=== PATIENT | female | born 1975 | race Two or more races ===

== ENCOUNTER 2017-12-06 19:00 | Observation (INO) | payer SELFPAY ==
[~2017-12-06] VITALS: Ht 165.1 cm; Wt 82.7 kg
[2017-12-06 19:48] LABS: BASOPHILS 0.2 % (0-2); EOSINOPHILS 2.4 % (0-7); HEMATOCRIT 37.1 % (36.0-48.0); HEMOGLOBIN 12.9 g/dL (12-16); IMMATURE GRANULOCYTES 0.3 % (0-5); LYMPHOCYTES 31.2 % (15-50); MCH 31.4 pg (26.0-34.0); MCHC 34.8 g/dL (31.0-37.0); MCV 90.3 fL (80.0-100.0); MEAN PLATELET VOLUME 10.5 fL (7.4-10.4); MONOCYTES 7.7 % (2-11); NEUTROPHILS 58.2 % (40-80); PLATELET COUNT 249 10x3/uL (130-400); RBC 4.11 10x6/uL (4.00-5.40); RDW 13.1 % (11.5-14.5); WBC 9.5 10x3/uL (4.8-10.8)
[2017-12-06 19:59] LABS: INR 1.03 (0.85-1.17); PROTIME 13.1 SECONDS (11.6-15.0)
[2017-12-06 20:00] LABS: APTT 28.5 SECONDS (22.8-39.4)
[2017-12-06 20:01] LABS: D-DIMER-QUANTITATIVE < 0.27 ug/mLFEU (0.20-0.54)
[2017-12-06 20:23] VITALS: BP 213/93
[2017-12-06 20:35] LABS: ALBUMIN 3.5 g/dL (3.4-5.0); ALKALINE PHOSPHATASE 49 U/L (46-116); ALT (SGPT) 62 U/L (10-68); CALC OSMOLALITY 274 mosm/kg (275-300); CALCIUM 7.7 mg/dL (8.5-10.1); CHLORIDE - SERUM 103 mmol/L (98-107); CREATININE - SERUM 0.7 mg/dL (0.6-1.3); GLUCOSE 155 mg/dL (74-106); POTASSIUM - SERUM 3.7 mmol/L (3.5-5.1); SODIUM 137 mmol/L (136-145); UREA NITROGEN 8 mg/dL (7-18); eGFR NON AFRICAN AMERICAN > 90 mL/min (90-120)
[2017-12-06 20:44] LABS: AMYLASE - SERUM 42 U/L (25-115); CKMB 0.8 U/L (0.0-3.6); CREATINE KINASE 107 UL (21-215); LIPASE 169 U/L (73-393); MAGNESIUM - SERUM 2.1 mg/dL (1.8-2.4); TROPONIN-I < 0.017 ng/mL (0.000-0.060)
[2017-12-06 21:20] VITALS: BP 203/109
[2017-12-06 23:01] VITALS: BP 195/93
[2017-12-06 23:41] VITALS: BP 166/97
[2017-12-07 00:15] LABS: CKMB 0.8 U/L (0.0-3.6); CREATINE KINASE 87 UL (21-215); TROPONIN-I < 0.017 ng/mL (0.000-0.060)
[2017-12-07 00:42] VITALS: BP 155/82; BMI 30.3
[2017-12-07] MEDS ORDERED: CLARITIN10 MG/TAB PO (00:50)
[2017-12-07] MEDS ORDERED: ZESTRIL10 MG PO (00:51)
[2017-12-07 04:00] VITALS: BP 155/82
[2017-12-07 05:50] LABS: BASOPHILS 0.2 % (0-2); EOSINOPHILS 2.8 % (0-7); HEMATOCRIT 36.4 % (36.0-48.0); HEMOGLOBIN 12.6 g/dL (12-16); IMMATURE GRANULOCYTES 0.3 % (0-5); MCH 31.3 pg (26.0-34.0); MCHC 34.6 g/dL (31.0-37.0); MCV 90.3 fL (80.0-100.0); MEAN PLATELET VOLUME 10.5 fL (7.4-10.4); MONOCYTES 5.9 % (2-11); NEUTROPHILS 64.8 % (40-80); PLATELET COUNT 217 10x3/uL (130-400); RBC 4.03 10x6/uL (4.00-5.40); RDW 13.1 % (11.5-14.5); WBC 9.1 10x3/uL (4.8-10.8)
[2017-12-07 06:33] LABS: CALC OSMOLALITY 273 mosm/kg (275-300); CALCIUM 7.6 mg/dL (8.5-10.1); CARBON DIOXIDE 25.5 mmol/L (21.0-32.0); CHLORIDE - SERUM 106 mmol/L (98-107); CKMB 0.6 U/L (0.0-3.6); CREATINE KINASE 76 UL (21-215); CREATININE - SERUM 0.6 mg/dL (0.6-1.3); GLUCOSE 132 mg/dL (74-106); SODIUM 137 mmol/L (136-145); TROPONIN-I < 0.017 ng/mL (0.000-0.060); UREA NITROGEN 7 mg/dL (7-18); eGFR NON AFRICAN AMERICAN > 90 mL/min (90-120)
[2017-12-07 08:51] VITALS: BP 147/58
[2017-12-07 11:32] VITALS: BP 163/100
[2017-12-07 13:40] LABS: CKMB 0.7 U/L (0.0-3.6); CREATINE KINASE 91 UL (21-215)
[2017-12-07 13:42] LABS: TROPONIN-I < 0.017 ng/mL (0.000-0.060)
[2017-12-07 16:03] VITALS: BP 157/88
[2017-12-07 16:08] VITALS: Ht 165.1 cm; Wt 82.7 kg
[2017-12-07 16:39] LABS: CHOL - HDL RATIO 2.7 ratio (2.3-4.1); LDL-HDL RATIO 1.4 ratio (1.5-3.5)
[2017-12-07 17:50] LABS: APPEARANCE CLEAR (CLEAR); BILIRUBIN NEGATIVE (NEGATIVE); COLOR STRAW (YELLOW); GLUCOSE NEGATIVE (NEGATIVE); KETONE NEGATIVE (NEGATIVE); NITRITE NEGATIVE (NEGATIVE); PROTEIN NEGATIVE (NEGATIVE); SPECIFIC GRAVITY 1.005 (1.005-1.020); UROBILINOGEN NORMAL (NORMAL)
[2017-12-07 17:52] LABS: BACTERIA FEW /hpf (NONE SEEN); RED CELLS - URINE OCC /hpf (0-5); WHITE CELLS - URINE 0-5 /hpf (0-5)
[2017-12-07 20:00] VITALS: BP 165/92
[2017-12-08 04:00] VITALS: BP 120/66
[2017-12-08 07:10] LABS: BASOPHILS 0.3 % (0-2); EOSINOPHILS 2.5 % (0-7); HEMATOCRIT 37.4 % (36.0-48.0); HEMOGLOBIN 12.9 g/dL (12-16); IMMATURE GRANULOCYTES 0.4 % (0-5); LYMPHOCYTES 27.8 % (15-50); MCH 31.3 pg (26.0-34.0); MCHC 34.5 g/dL (31.0-37.0); MCV 90.8 fL (80.0-100.0); MEAN PLATELET VOLUME 10.7 fL (7.4-10.4); MONOCYTES 10.2 % (2-11); NEUTROPHILS 58.8 % (40-80); PLATELET COUNT 222 10x3/uL (130-400); RBC 4.12 10x6/uL (4.00-5.40); RDW 13.2 % (11.5-14.5)
[2017-12-08 07:15] LABS: WBC 6.8 10x3/uL (4.8-10.8)
[2017-12-08 07:29] LABS: CALC OSMOLALITY 274 mosm/kg (275-300); CALCIUM 7.9 mg/dL (8.5-10.1); CARBON DIOXIDE 23.9 mmol/L (21.0-32.0); CHLORIDE - SERUM 105 mmol/L (98-107); CREATININE - SERUM 0.5 mg/dL (0.6-1.3); GLUCOSE 129 mg/dL (74-106); POTASSIUM - SERUM 4.2 mmol/L (3.5-5.1); SODIUM 137 mmol/L (136-145); eGFR NON AFRICAN AMERICAN > 90 mL/min (90-120)
[2017-12-08 07:30] LABS: UREA NITROGEN 10 mg/dL (7-18)
[2017-12-08 08:13] VITALS: BP 121/71
[2017-12-08] MEDS ORDERED: PROTONIX40 MG PO (10:01)
[2017-12-08] MEDS ORDERED: LISINOPRIL10 MG PO (10:01)
[2017-12-08] MEDS ORDERED: GLUCOPHAGE500 MG PO (10:08)
[2017-12-08 11:52] VITALS: BP 138/85
== END 2017-12-08 14:51 | disposition home or self-care (01) ==
LOC: D.ER 19:00 → D.EDHOLD 23:34 → OBSVTIME 23:34 → D.M2 23:34
PROVIDERS: Family Medicine; Internal Medicine Nephrology
DX: I16.0 Hypertensive urgency (principal); G45.9 Transient cerebral ischemic attack, unspecified; K80.20 Calculus of gallbladder without cholecystitis without obstruction; K76.0 Fatty (change of) liver, not elsewhere classified; E11.9 Type 2 diabetes mellitus without complications

== ENCOUNTER 2018-08-06 23:29 | Emergency (ER) | payer SELFPAY ==
[~2018-08-06] VITALS: Ht 165.1 cm; Wt 77.3 kg
[~2018-08-06 23:29] MED LIST: CLARITIN10 MG/TAB PO; GLUCOPHAGE500 MG PO; LISINOPRIL10 MG PO; PROTONIX40 MG PO; ZESTRIL10 MG PO
[2018-08-06 23:30] VITALS: Ht 165.1 cm; Wt 77.3 kg
[2018-08-07 00:28] LABS: BASOPHILS 0.2 % (0-2); EOSINOPHILS 0.7 % (0-7); HEMATOCRIT 37.2 % (36.0-48.0); HEMOGLOBIN 12.8 g/dL (12-16); IMMATURE GRANULOCYTES 0.2 % (0-5); LYMPHOCYTES 20.3 % (15-50); MCH 30.8 pg (26.0-34.0); MCHC 34.4 g/dL (31.0-37.0); MCV 89.6 fL (80.0-100.0); MEAN PLATELET VOLUME 10.4 fL (7.4-10.4); MONOCYTES 6.1 % (2-11); NEUTROPHILS 72.5 % (40-80); PLATELET COUNT 262 10x3/uL (130-400); RBC 4.15 10x6/uL (4.00-5.40); RDW 13.3 % (11.5-14.5); WBC 10.7 10x3/uL (4.8-10.8)
[2018-08-07 00:44] LABS: ALBUMIN 3.7 g/dL (3.4-5.0); ALKALINE PHOSPHATASE 69 U/L (46-116); ALT (SGPT) 59 U/L (10-68); BILIRUBIN - TOTAL 0.21 mg/dL (0.2-1.3); CALC OSMOLALITY 285 mosm/kg (275-300); CALCIUM 8.7 mg/dL (8.5-10.1); CARBON DIOXIDE 23.7 mmol/L (21.0-32.0); CHLORIDE - SERUM 106 mmol/L (98-107); CREATININE - SERUM 0.7 mg/dL (0.6-1.3); POTASSIUM - SERUM 3.9 mmol/L (3.5-5.1); PROTEIN - SERUM 7.5 g/dL (6.4-8.2); SODIUM 141 mmol/L (136-145); UREA NITROGEN 12 mg/dL (7-18); eGFR NON AFRICAN AMERICAN > 90 mL/min (90-120)
[2018-08-07 00:45] LABS: GLUCOSE 195 mg/dL (74-106)
[2018-08-07 00:47] LABS: LIPASE 145 U/L (73-393); MAGNESIUM - SERUM 2.1 mg/dL (1.8-2.4); PRO BNP 18 pg/mL (0-125); THYROID STIMULATING HORMONE 3.13 uIU/mL (0.36-3.74); TROPONIN-I < 0.017 ng/mL (0.000-0.060)
[2018-08-07] MEDS ORDERED: TENORMIN25 MG PO (01:13)
[2018-08-07] MEDS ORDERED: CATAPRES0.1 MG PO (01:13)
[2018-08-07 02:20] VITALS: BP 163/85
== END 2018-08-07 02:20 | disposition home or self-care (01) ==
LOC: D.ER 23:29
PROVIDERS: Family Medicine
DX: I10 Essential (primary) hypertension (principal)